=== PATIENT | male | born 1965 | race Caucasian/White ===

== ENCOUNTER → 2019-02-17 | Day surgery (SDC) | payer OTHER ==
[~2019-02-17] MED LIST: CALC500T54 PO; CARV12.511 PO; COLC0.6T34 PO; DRON400T PO; FEBU80TA2 PO; GABA300C18 PO; HYDROmorphone 2 MG/ML VIAL IV PRN; IV RINGERS,LACTATED 1000ML 1,000 ML IV SCH; LIDOCAINE 2% PF 5 ML VIAL. ONE; MORPHINE SULFATE 2 MG/ML VIAL. IV PRN; MULT1TAB97 PO; OMEP40CA45 PO; OXYC1TAB7 PO; PROCHLORPERAZINE 10 MG/2 ML VIAL. IV PRN; PROPOFOL 20 ML IV ONE; SERT25TA4 PO; SPIR25TA5 PO; TEST200V3 IM; WARF7.5T45 PO; fentaNYL PF VIAL 100 MCG/2 ML VIAL IV PRN
[2019-02-17 09:09] VITALS: BP 186/82
--- NOTE | 2019-02-21 09:07 | PATHOLOGY ---
[facility] Accession Number: [id number] . 01 Material submitted: . esophagus - ESOPHAGEAL BX . 01 Clinical history: . Dysphagia . 02 Diagnosis: Esophageal biopsies: - Segments of hyperplastic squamous esophageal mucosa consistent with reflux esophagitis. (JPM:[facility] 02/20/2019) RUST 02/20/2019 0956 Local . 02 Comment: Sections of the esophageal biopsy reveal multiple segments of focally tangentially oriented hyperplastic squamous esophageal mucosa. The findings are consistent with reflux esophagitis. There is no evidence of Martin's change, dysplasia, or malignancy. (JPM:[facility] 02/20/2019) . 02 Electronically signed: . Markos Cortes MD, Pathologist NPI- [id number] . 01 Gross description: . Received in formalin labeled "AngiejaneaideVictor M, esophageal BX, rule out Martin's," are 4 segments of driver soft tissue measuring 1.0 x 0.6 x 0.2 cm in aggregate dimensions and ranging from 0.3 to 0.6 cm in maximum dimension. The specimen is submitted entirely in cassette A1. (TSD; 02/17/2019) TOB/TOB 02/17/2019 1658 Local . 02 Pathologist provided ICD-10: K21.0 . 02 CPT . 919690 Specimen Comment: A courtesy copy of this report has been sent to [phone], [phone] Specimen Comment: [id number] Specimen Comment: Report sent to / DR ASCENCIO Performed at: 01 [facility] [address], [place], [place] [id number] MD Doron العلي MD Phone: [phone] Performed at: 02 [facility] [address] [place], [place] [id number] MD Markos Cortes MD Phone: [phone]
== END ==
LOC: ENDOS 07:45
PROVIDERS: ATTEND Internal Medicine Gastroenterology
DX: R13.10 Dysphagia, unspecified (principal); K22.2 Esophageal obstruction; K22.70 Barrett's esophagus without dysplasia; K21.0 Gastro-esophageal reflux disease with esophagitis; K29.50 Unspecified chronic gastritis without bleeding; D50.9 Iron deficiency anemia, unspecified; K44.9 Diaphragmatic hernia without obstruction or gangrene; K58.9 Irritable bowel syndrome, unspecified; K31.7 Polyp of stomach and duodenum; F32.9 Major depressive disorder, single episode, unspecified; I48.91 Unspecified atrial fibrillation; I10 Essential (primary) hypertension; E78.5 Hyperlipidemia, unspecified; F15.90 Other stimulant use, unspecified, uncomplicated; E66.9 Obesity, unspecified; Z68.39 Body mass index [BMI] 39.0-39.9, adult; Z93.1 Gastrostomy status; Z72.89 Other problems related to lifestyle; Z95.0 Presence of cardiac pacemaker; Z98.890 Other specified postprocedural states
CPT/HCPCS: 43239; 43450; 88305; J2001; J2704